=== PATIENT | female | born 1965 | race Caucasian/White ===

== ENCOUNTER 2019-04-22 15:36 | Emergency (ER) | payer BC ==
[2019-04-22 15:48] VITALS: BP 140/86
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
--- NOTE | 2019-04-22 16:17 | XRAY Report ---
Reason: left wrist injury Procedure Date: 04/22/2019 Accession Number: [id number] / [id number] Procedure: XR - Wrist 3 View LT CPT Code: FULL RESULT: EXAM: LEFT WRIST RADIOGRAPHY EXAM DATE: 04/22/2019 04:11 PM. CLINICAL HISTORY: Left wrist injury. COMPARISON: None. TECHNIQUE: 3 views. FINDINGS: Bones: Distal radius is fractured. Mild impaction. The bones are qualitatively osteopenic; this limits evaluation for underlying fractures or masses. Joints: Normal. No subluxations. Soft Tissues: Normal. No soft tissue swelling. IMPRESSION: Distal radial fracture, mildly impacted. RADIA
[2019-04-22] MEDS ORDERED: IBUPROFEN 800 MG TABLET PO STA (16:59)
== END 2019-04-22 17:09 | disposition home or self-care (01) ==
LOC: ED 15:36
DX: S52.502A Unspecified fracture of the lower end of left radius, initial encounter for closed fracture (principal); S50.811A Abrasion of right forearm, initial encounter; W01.0XXA Fall on same level from slipping, tripping and stumbling without subsequent striking against object, initial encounter; Y93.K9 Activity, other involving animal care; Y92.009 Unspecified place in unspecified non-institutional (private) residence as the place of occurrence of the external cause
CPT/HCPCS: 29105; 73110; 99283; A9270

== ENCOUNTER 2020-02-16 15:28 | Emergency (ER) | payer BC ==
[2020-02-16] MEDS ORDERED: TETANUS/DIPHTHERIA/PERTUSSIS 0.5 ML SYRINGE IM ONE (15:44)
[2020-02-16] MEDS ORDERED: HYDROmorphone 2 MG/ML VIAL IVP STA (15:44)
[2020-02-16] MEDS ORDERED: ceFAZolin 2 GM in SODIUM CHLORIDE 0.9% 100ML 100 ML IV STA (15:44)
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
[2020-02-16 15:55] LABS: BASOPHILS % (AUTO) 0.5 %; EOSINOPHILS # (AUTO) 0.1 10^3/uL (0.0-0.7); EOSINOPHILS % (AUTO) 0.9 %; HGB - HEMOGLOBIN 14.2 g/dL (12.0-16.0); LYMPHOCYTES # (AUTO) 2.8 10^3/uL (1.5-3.5); LYMPHOCYTES % (AUTO) 37.3 %; MEAN CORPUSCULAR HGB CONC 34.6 g/dL (32.0-36.0); MEAN CORPUSCULAR VOLUME 92.3 fL (81.0-99.0); MEAN PLATELET VOLUME 10.6 fL (7.9-10.8); MONOCYTES # (AUTO) 0.7 10^3/uL (0.0-1.0); MONOCYTES % (AUTO) 8.7 %; NEUTROPHILS % (AUTO) 52.2 %; PLT - PLATELET COUNT 148 10^3/uL (130-450); RED BLOOD COUNT 4.44 10^6/uL (4.20-5.40); RED CELL DISTRIBUTION WIDTH 12.8 % (12.0-15.0); WHITE BLOOD COUNT 7.6 x10^3/uL (4.8-10.8)
[2020-02-16 16:06] LABS: INR 1.2 (0.8-1.2); PT - PROTHROMBIN TIME 13.1 secs (9.9-12.6)
[2020-02-16 16:09] LABS: ALBUMIN 4.6 g/dL (3.2-5.5); ALBUMIN/GLOBULIN RATIO 1.5 (1.0-2.2); BILIRUBIN,TOTAL 0.9 mg/dL (0.2-1.0); CALCIUM 9.4 mg/dL (8.5-10.3); TOTAL PROTEIN 7.6 g/dL (6.7-8.2)
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
[2020-02-16] MEDS ORDERED: SODIUM CHLORIDE 0.9% 1,000 ML IV STA ×2 (17:38)
[2020-02-16] MEDS ORDERED: HYDROmorphone 1 MG/ML CARPUJECT IVP STA (17:48)
[2020-02-16 18:43] VITALS: BP 138/76
== END 2020-02-16 19:09 | disposition short-term general hospital (02) ==
LOC: ED 15:28
DX: S62.303B Unspecified fracture of third metacarpal bone, left hand, initial encounter for open fracture (principal); S62.305B Unspecified fracture of fourth metacarpal bone, left hand, initial encounter for open fracture; S62.613B Displaced fracture of proximal phalanx of left middle finger, initial encounter for open fracture; S62.615B Displaced fracture of proximal phalanx of left ring finger, initial encounter for open fracture; S66.323A Laceration of extensor muscle, fascia and tendon of left middle finger at wrist and hand level, initial encounter; W32.0XXA Accidental handgun discharge, initial encounter; W54.8XXA Other contact with dog, initial encounter; Y93.01 Activity, walking, marching and hiking; Y92.821 Forest as the place of occurrence of the external cause; Z23 Encounter for immunization
CPT/HCPCS: 29125; 36415; 73130; 80053; 83690; 85025; 85610; 90471; 90715; 96361; 96365; 96366; 96375; 96376; 99283; 99285; J1170